=== PATIENT | female | born 1980 | race Caucasian/White ===

== ENCOUNTER → 2019-04-14 13:58 | Outpatient (CLI) | payer OTHER, SELFPAY | PROVIDERS: Visit Provider Physician Assistant | DX: N10 Acute pyelonephritis (principal) | CPT/HCPCS: 87077; 87086; 87186 ==

== ENCOUNTER 2021-02-23 11:46 | Emergency (ER) | payer OTHER, SELFPAY ==
[2021-02-23 11:47] VITALS: BP 149/73; PULSE 88; RESP 14; TEMP 37.6; O2SAT 100; BMI 28.8
--- NOTE | 2021-02-23 12:25 | DI.RAD.S_ITS ---
PROCEDURE: XR SHOULDER RT MIN 2V INDICATIONS: shoulder pain, reduced rom TECHNIQUE: 2 views of the shoulder were acquired. COMPARISON: None. FINDINGS: Bones: No fractures or dislocations. No suspicious bony lesions. Visualized ribs appear intact. Soft tissues: No suspicious soft tissue calcifications. IMPRESSION: No evidence acute bony abnormality of the right shoulder. If clinical suspicion and/or symptoms persist, further assessment with repeat plain films, or advanced imaging (e.g., CT, MRI, or bone scan) may be helpful for further assessment. Dictated by: Vicente Mckenna M.D. on 02/23/2021 at 13:37 Approved by: Vicente Mckenna M.D. on 02/23/2021 at 13:38
--- NOTE | 2021-02-23 12:35 | ED_ITS ---
HPI - Extremity Injury (Upper) <GIAN AntonBC - Last Filed: 02/23/21 14:31> General Chief Complaint: Extremity Injury, Upper Stated Complaint: Right Shoulder Pain Time Seen by Provider: 02/23/21 12:08 Source: patient Mode of arrival: Ambulatory Limitations: no limitations History of Present Illness HPI narrative: The patient is a 40-year-old female nonsmoker with history of pyelonephritis who presents with a chief complaint of right shoulder pain. This has been an issue for her since last summer. 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 She saw her primary care provider, who referred her for an MRI in physical therapy as they were concerned about shoulder impingement. She has not taken anything for pain as she does not like to take pain medication. She states that today she was throwing a bucket at her rooster and she felt a pop and sudden severe pain. She states that she has not been contacted about her MRI referral since it had to be transition from [facility] due to their MRI being down. Related Data Previous Rx's Medication Instructions Recorded cyclobenzaprine 10 mg PO TID PRN #14 tab 02/23/21 ketorolac 10 mg PO TID PRN 5 Days #14 tab 02/23/21 lidocaine 1 patch TOPICAL DAILY PRN #15 ea 02/23/21 Allergies Allergy/AdvReac Type Severity Reaction Status Date / Time No Known Drug Allergies Allergy Verified 02/23/21 11:51 Review of Systems <YANELIS Anton - Last Filed: 02/23/21 14:31> Review of Systems Narrative: GENERAL: Denies chills, fatigue, malaise, fever, sweats. HEENT: Denies sinus pain, ear pain, sore throat, difficulty swallowing, dizziness. RESPIRATORY: Denies dyspnea, cough, wheezing, hemoptysis, sputum. CARDIOVASCULAR: Denies chest pain, palpitations, orthopnea, edema, GASTROINTESTINAL: Denies nausea, vomiting, abdominal pain, diarrhea, constipati on, melena. : Denies dysuria, frequency, incontinence, hematuria, urinary retention. MUSCULOSKELETAL: See HPI SKIN: Denies rash, skin lesions, or other NEUROLOGIC: Denies weakness, headache, numbness, change in speech, confusion, seizures, incoordination. PSYCHIATRIC: No concerning psychosocial issues. 12 point review of systems is negative except for those stated above Patient History <YANELIS Anton - Last Filed: 02/23/21 14:31> Social History Smoking Status: Never smoker Smoking Status: Never smoker alcohol intake frequency: holidays/special occasions only Substance Use Type: does not use Exam <YANELIS Anton - Last Filed: 02/23/21 14:31> Narrative Exam Narrative: GENERAL: This is a well-nourished, well-developed patient, no acute distress HEAD: Atraumatic. Normocephalic. No temporal or scalp tenderness. EYES: Pupils equal round and reactive. Extraocular motions intact. No scleral icterus. No injection or drainage. ENT: Nose without bleeding, purulent drainage or septal hematoma. Throat without erythema, tonsillar hypertrophy or exudate. Uvula midline. Airway patent. NECK: Trachea midline. No JVD or lymphadenopathy. Supple, nontender, no meningeal signs. CARDIOVASCULAR: Regular rate and rhythm RESPIRATORY: No cough. No increased respiratory effort. No accessory muscle use EXTREMITIES: Right shoulder with diffuse pain to palpation, reduced range of motion all montaño, negative empty can test. Bilateral radial pulses intact. BACK: Nontender without deformity or crepitance. No flank tenderness. NEURO: AOx3. SKIN: No rash or erythema on visible skin. No overlying erythema or ecchymosis noted of right shoulder Initial Vital Signs Initial Vital Signs: Vital Signs Temperature 99.6 F 02/23/21 11:47 Pulse Rate 88 02/23/21 11:47 Respiratory Rate 14 02/23/21 11:47 Blood Pressure 149/73 H 02/23/21 11:47 Pulse Oximetry 100 02/23/21 11:47 <Daljit Higginbotham DO - Last Filed: 02/23/21 17:44> Initial Vital Signs Initial Vital Signs: Vital Signs Temperature 99.6 F 02/23/21 11:47 Pulse Rate 88 02/23/21 11:47 Respiratory Rate 14 02/23/21 11:47 Blood Pressure 149/73 H 02/23/21 11:47 Pulse Oximetry 100 02/23/21 11:47 Scores <YANELIS Anton - Last Filed: 02/23/21 14:31> GCS [place] coma scale eye opening: Spontaneous [place] coma scale verbal response: Orientated [place] coma scale motor response: Obey commands [place] coma scale total score: 15 Course <YANELIS Anton - Last Filed: 02/23/21 14:31> Orders Ordered: ED Orders 02/23/21 12:25 XR shoulder RT min 2V Stat Discontinued Medications Ketorolac Tromethamine (Ketorolac 30 Mg/Ml Vial) 60 mg IM NOW ONE Stop: 02/23/21 12:26 Last Admin: 02/23/21 12:47 Dose: 60 mg Documented by: CTRYVONNE Lidocaine (Lidocaine Patch 1 Each Adh..Patch) 1 each TOP NOW ONE Stop: 02/23/21 12:26 Last Admin: 02/23/21 12:47 Dose: 1 each Documented by: CTRYVONNE Vital Signs Vital signs: Vital Signs - 8 hr 02/23/21 11:47 02/23/21 14:02 Temperature 99.6 F Pulse Rate 88 72 Respiratory Rate 14 Blood Pressure 149/73 H 122/64 Pulse Oximetry 100 98 <Daljit Higginbotham DO - Last Filed: 02/23/21 17:44> Orders Ordered: ED Orders 02/23/21 12:25 XR shoulder RT min 2V Stat Discontinued Medications Ketorolac Tromethamine (Ketorolac 30 Mg/Ml Vial) 60 mg IM NOW ONE Stop: 02/23/21 12:26 Last Admin: 02/23/21 12:47 Dose: 60 mg Documented by: CTRYVONNE Lidocaine (Lidocaine Patch 1 Each Adh..Patch) 1 each TOP NOW ONE Stop: 02/23/21 12:26 Last Admin: 02/23/21 12:47 Dose: 1 each Documented by: CTRYVONNE Vital Signs Vital signs: Vital Signs - 8 hr 02/23/21 11:47 02/23/21 14:02 Temperature 99.6 F Pulse Rate 88 72 Respiratory Rate 14 Blood Pressure 149/73 H 122/64 Pulse Oximetry 100 98 MDM - Extremity Injury (Upper) <YANELIS Anton - Last Filed: 02/23/21 14:31> Imaging Data Extremity x-ray #1: Radiologist's Impression: [address] [place] [id number] ReportSigned Patient: [place] Ugarte PMR#: [id number]: 1980Acct:[id number]/Sex: 40 / FDate of Service: 02/23/21Loc: EDAccession Number: [id number] Procedure: XR shoulder RT min 2V Ordering Provider: Stephenie Su [employer]OCIATE- PROCEDURE: XR SHOULDER RT MIN 2V INDICATIONS: shoulder pain, reduced rom TECHNIQUE: 2 views of the shoulder were acquired. COMPARISON: None. FINDINGS: Bones: No fractures or dislocations. No suspicious bony lesions. Visualized ribs appear intact. Soft tissues: No suspicious soft tissue calcifications. IMPRESSION: No evidence acute bony abnormality of the right shoulder. If clinical suspicion and/or symptoms persist, further assessment with repeat plain films, or advanced imaging (e.g., CT, MRI, or bone scan) may be helpful for further assessment. Dictated by: Vicente Mckenna M.D. on 02/23/2021 at 13:37 Approved by: Vicente Mckenna M.D. on 02/23/2021 at 13:38 [facility] Narrative Medical decision making narrative: The patient is a 40-year-old female who presents with a chief complaint of right shoulder pain that has been ongoing for almost a year, worse over the past few days. Her x-ray is no acute findings. She feels improved after the above-stated therapies. Elected to try prescription of cyclobenzaprine rather than a dose as she has to drive home. The patient was able to schedule her outpatient MRI for Saturday I encouraged her to keep this appointment. She is neurovascularly intact her stay in the emergency department. Patient has no questions or concerns upon discharge states understanding of return precautions as well as follow-up care. Discharge Plan Departure Patient Disposition: Home Clinical Impression: Chronic shoulder pain Qualifiers: Laterality: right Qualified Code(s): M25.511 - Pain in right shoulder Instructions: How To Perform RICE (Rest, Ice, Compress, Elevate), DI for Shoulder Pain Activity Restrictions/Additional Instructions: As I discussed, your x-ray shows no acute fracture. This does not rule out a soft tissue injury such as a ligament or tendon injury. It is important that you follow up with primary care provider, especially if worsening or no improvement. There can be fractures that did not show up on initial x-ray. I sent your prescriptions to [facility]. One is a muscle relaxer called cyclobenzaprine. This can be sedating. Do not combine with any sedating agents. I also sent a prescription of ketorolac. This is an NSAID. Do not combine with any other NSAIDs such as ibuprofen or Aleve. Please take this with food. Please follow-up with primary care provider in the next few days. Prescriptions: New ketorolac 10 mg tablet 10 mg PO TID PRN (Reason: pain) 5 Days Qty: 14 RF: 0 cyclobenzaprine 10 mg tablet 10 mg PO TID PRN (Reason: muscle spasm) Qty: 14 RF: 0 lidocaine 5 % adhesive patch,medicated 1 patch topical DAILY PRN (Reason: pain, moderate) Qty: 15 RF: 0 Referrals: Anya Dowling ARNP [Primary Care Provider] - <Daljit Higginbotham DO - Last Filed: 02/23/21 17:44> [facility] Dr Higginbotham Co-Sign Statement: I was available for consultation during this patient's emergency department visit. This chart is signed by myself for administrative purposes only. I did not have direct contact with this patient during this visit. They were seen independently by the APC.
[2021-02-23] MEDS: KETOROLAC 30 MG/ML VIAL 60 MG IM (12:47)
[2021-02-23] MEDS: LIDOCAINE PATCH 1 EACH ADH..PATCH TOP (12:47)
[2021-02-23 14:02] VITALS: BP 122/64; PULSE 72; O2SAT 98
== END 2021-02-23 14:03 | disposition home or self-care (01) ==
PROVIDERS: Emergency Provider Nurse Practitioner Family; PCP Nurse Practitioner Family
DX: M25.511 Pain in right shoulder (principal)
CPT/HCPCS: 73030; 96372; 99283; 99284; J1885

== ENCOUNTER → 2021-03-01 16:37 | Outpatient (CLI) | payer OTHER, SELFPAY ==
--- NOTE | 2021-03-01 16:38 | DI.MRI.S_ITS ---
PROCEDURE: MR SHOULDER RT WO CON INDICATIONS: IMPINGEMENT SYNDROME OF RIGHT SHOULDER TECHNIQUE: Noncontrast oblique coronal T2 fast spin echo with fat saturation, oblique sagittal T1 spin echo and T2 fast spin echo with fat saturation, axial T1 spin echo and T2 fast spin echo with fat saturation through the shoulder. COMPARISON: [facility], CR, XR SHOULDER RT MIN 2V, 02/23/2021, 12:38. FINDINGS: Image quality: Excellent. Rotator cuff: There is mild articular sided partial-thickness tearing in the distal infraspinatus adjacent to its insertion. No full-thickness tear or tendon retraction. The supraspinatus, subscapularis, and teres minor appear intact. Sagittal images demonstrate no fatty muscle atrophy. Bones and bursae: No bone marrow contusions or fractures. There is mild to moderate acromioclavicular joint degeneration. The acromion demonstrates mild lateral downsloping, without an os acromiale. A small amount of subacromial/subdeltoid bursal fluid is present. Capsule and soft tissues: There is mild tearing within the anteroinferior, inferior, posteroinferior, and posterior labrum. The long head of the biceps tendon demonstrates normal location and morphology. There is a mild strain of the deltoid muscle laterally with edema tracking along the visualized myotendinous junction. There is also a small amount of subcutaneous edema superficial to the muscle laterally. Mildly enlarged right axillary lymph nodes are partially visualized, measuring up to approximately 1 cm in short axis. IMPRESSION: 1. Mildest articular sided partial-thickness tearing in the distal infraspinatus adjacent to its insertion. No full-thickness rotator cuff tear or tendon retraction. No fatty muscle atrophy. 2. Mild to moderate acromioclavicular joint degeneration with mild lateral downsloping of the acromion. There is an associated small amount of subacromial/subdeltoid bursal fluid. 3. Mild strain of the deltoid muscle laterally. 4. Mildly enlarged right axillary lymph nodes partially visualized. Recommend correlation clinically including with clinical exam. If indicated, further evaluation may be obtained with a dedicated axillary ultrasound. 5. Semi circumferential tearing of the labrum as described. Dictated by: Arnold Sotelo M.D. on 03/02/2021 at 9:04 Approved by: Arnold Sotelo M.D. on 03/02/2021 at 9:14
== END ==
PROVIDERS: PCP Nurse Practitioner Family; Referring Provider Nurse Practitioner Family; Visit Provider Nurse Practitioner Family
DX: M75.41 Impingement syndrome of right shoulder (principal); M75.111 Incomplete rotator cuff tear or rupture of right shoulder, not specified as traumatic; S46.811A Strain of other muscles, fascia and tendons at shoulder and upper arm level, right arm, initial encounter; S43.491A Other sprain of right shoulder joint, initial encounter; M19.011 Primary osteoarthritis, right shoulder; R59.0 Localized enlarged lymph nodes
CPT/HCPCS: 73221